=== PATIENT | male | born 1965 | race Caucasian/White ===

== ENCOUNTER → 2017-12-31 | Outpatient (CLI) | payer BC, OTHER ==
[~2017-12-31] MED LIST: ALBU90OI INH; Aerochamber1 EACH MC; DICL75ER PO; Norco 5-325 Ta1 EACH PO; Prednisone20 MG PO; Zithromax250 MG PO
[2017-12-31 12:18] LABS: Test Name PBPORQ
== END ==
LOC: LAB SHORT 07:30 → LAB 07:30 → EDSTATUS 12-28 12:20 → LAB FUT 12-28 12:20
PROVIDERS: Physician Assistant Medical
DX: L30.9 Dermatitis, unspecified (principal); L72.0 Epidermal cyst; L81.4 Other melanin hyperpigmentation; L81.0 Postinflammatory hyperpigmentation; L82.1 Other seborrheic keratosis; D18.01 Hemangioma of skin and subcutaneous tissue; D22.5 Melanocytic nevi of trunk; L91.8 Other hypertrophic disorders of the skin
CPT/HCPCS: 81050; 84110; 84120

== ENCOUNTER 2019-03-31 14:54 | Emergency (ER) | payer OTHER ==
[~2019-03-31] VITALS: Ht 180.3 cm; Wt 117.9 kg
[2019-03-31] MEDS ORDERED: Prednisone20 MG PO (16:18)
== END 2019-03-31 15:55 | disposition home or self-care (01) ==
LOC: ER 14:54
DX: M25.511 Pain in right shoulder (principal); G89.29 Other chronic pain; F17.200 Nicotine dependence, unspecified, uncomplicated; Z79.899 Other long term (current) drug therapy
CPT/HCPCS: 96372; 99282-25; J1885